=== PATIENT | female | born 1990 | race Asian ===

== ENCOUNTER 2022-06-23 06:25 | Inpatient (IN) | payer OTHER ==
[2022-06-23] MEDS: ELECTROLYTE-148 SOLN 1,000 ML IV SCH ×3 (08:00→18:40)
[2022-06-23 09:16] VITALS: BMI 27.8
[2022-06-23] MEDS ORDERED: OXYTOCIN 30 UNITS in 0.9% NS 30 UNIT/500 ML INFUS.BAG IVPB SCH (10:30)
[2022-06-23 10:52] LABS: BASO % 0.3 % (0-2.0); EOS % 0.5 % (0-4.5); HEMATOCRIT 38.2 % (32.4-45.2); HEMOGLOBIN 12.9 GM/dL (10.7-15.3); LYMPH % 17.6 % (8-40); MCH 32.8 pg (25.7-33.7); MCHC 33.7 g/dl (32.0-36.0); MEAN CELL VOLUME 97.2 fl (80-96); MEAN PLT VOLUME 8.7 fl (7.5-11.1); MONO % 5.5 % (3.8-10.2); NEUT % 76.1 % (42.8-82.8); PLATELET COUNT 205 10^3/uL (134-434); RBC 3.93 M/mm3 (3.60-5.2); RDW 13.2 % (11.6-15.6); WHITE BLOOD COUNT 8.9 K/mm3 (4.0-10.0)
[2022-06-23 11:01] LABS: INR 0.91 (0.83-1.09); PROTHROMBIN TIME (PATIENT) 10.4 SEC (9.7-13.0)
[2022-06-23] MEDS ORDERED: OXYTOCIN 30 UNITS in 0.9% NS 30 UNIT/500 ML INFUS.BAG IVPB ONE (11:02)
[2022-06-23 11:04] LABS: ACTIVATED PTT 26.2 SECONDS (25.2-36.5)
[2022-06-23 11:58] LABS: CALCIUM 8.5 mg/dL (8.5-10.1)
[2022-06-23 11:59] LABS: BLOOD UREA NITROGEN 5.4 mg/dL (7-18)
[2022-06-23 12:02] LABS: CREATININE 0.5 mg/dL (0.55-1.3)
[2022-06-23] MEDS ORDERED: PROMETHAZINE HCL 25 MG/1 ML VIAL IVPUSH ONE (13:15)
[2022-06-23] MEDS ORDERED: BUTORPHANOL TARTRATE 1 MG/ML VIAL IVPUSH ONE (13:15)
[2022-06-23] MEDS ORDERED: BUTORPHANOL TARTRATE 2 MG/ML VIAL ONE (13:31)
[2022-06-23] MEDS ORDERED: PROMETHAZINE HCL 25 MG/1 ML VIAL ONE (13:32)
[2022-06-23] MEDS ORDERED: NALOXONE HCL 0.4 MG/ML VIAL IVPUSH PRN (17:29)
[2022-06-23] MEDS ORDERED: FENTANYL/BUPIVACAINE/NS/PF - PCEA - 50 ML DISP.SYRIN EP ONE ×2 (17:29→22:09)
[2022-06-23] MEDS ORDERED: FENTANYL/BUPIVACAINE/NS/PF - PCEA - 50 ML DISP.SYRIN EP SCH (17:30)
[2022-06-23] MEDS ORDERED: BUPIVACAINE HCL/PF 0.25% (2.5MG/ML) 10 ML VIAL ONE (17:34)
[2022-06-23] MEDS ORDERED: FENTANYL CITRATE/PF 50 MCG/ML VIAL ONE (17:34)
[2022-06-23] MEDS ORDERED: OXYTOCIN 20 UNITS in 0.9% NS 20 UNIT/1,000 ML INFUS.BAG IV ONE (22:22)
[2022-06-23] MEDS ORDERED: LIDOCAINE HCL 1% PRESERVATIVE FREE - 30ML VIAL ONE (22:23)
[2022-06-23] MEDS ORDERED: ACETAMINOPHEN 325 MG TABLET (FP) PO PRN (23:19)
[2022-06-23] MEDS ORDERED: BISACODYL 10 MG SUPP.RECT RC PRN (23:19)
[2022-06-23] MEDS ORDERED: oxyCODONE HCL 5 MG TABLET PO PRN (23:19)
[2022-06-23] MEDS ORDERED: BENZOCAINE 20% 57 GM BOTTLE TP PRN (23:19)
[2022-06-23] MEDS ORDERED: METHYLERGONOVINE MALEATE 0.2 MG/1 ML AMP IM PRN (23:19)
[2022-06-23] MEDS ORDERED: BENZOCAINE 28 GM HEMORRHOIDAL OINTMENT TP PRN (23:19)
[2022-06-23] MEDS ORDERED: WITCH HAZEL 50% (TUCKS) 40 PAD/JAR PAD TP PRN (23:19)
[2022-06-23] MEDS ORDERED: OXYTOCIN 20 UNITS in 0.9% NS 20 UNIT/1,000 ML INFUS.BAG IV SCH (23:30)
[2022-06-24] MEDS: IBUPROFEN 600 MG TABLET (FP) PO PRN ×3 (02:05→18:05)
[2022-06-24 02:14] LABS: CORD BASE EXCESS -7.7 mmol/L (0-2); CORD PCO2 43.1 mmHg (30-78); CORD pH 7.262 (7.14-7.44)
[2022-06-24 04:27] VITALS: RESP 18
[2022-06-24 08:51] LABS: BASO % 0.3 % (0-2.0); EOS % 0.1 % (0-4.5); HEMATOCRIT 34.7 % (32.4-45.2); HEMOGLOBIN 11.7 GM/dL (10.7-15.3); LYMPH % 11.6 % (8-40); MCH 33.2 pg (25.7-33.7); MCHC 33.9 g/dl (32.0-36.0); MEAN CELL VOLUME 98.1 fl (80-96); MEAN PLT VOLUME 8.3 fl (7.5-11.1); MONO % 4.9 % (3.8-10.2); NEUT % 83.1 % (42.8-82.8); PLATELET COUNT 178 10^3/uL (134-434); RBC 3.54 M/mm3 (3.60-5.2); RDW 13.2 % (11.6-15.6); WHITE BLOOD COUNT 14.7 K/mm3 (4.0-10.0)
[2022-06-24] MEDS: PRENATAL VITAMINS W/ FOLIC ACID TABLET (FP) PO SCH (09:07)
[2022-06-24 11:29] LABS: POC NITRAZINE POS
[2022-06-24] MEDS ORDERED: SENNOSIDES/DOCUSATE COMBO (SENNA PLUS) TABLET (UD) PO PRN (22:00)
[2022-06-25] MEDS: IBUPROFEN 600 MG TABLET (FP) PO PRN ×2 (01:13→08:10)
[2022-06-25 08:48] VITALS: BP 106/53; PULSE 75; TEMP 98
[2022-06-25] MEDS: PRENATAL VITAMINS W/ FOLIC ACID TABLET (FP) PO SCH (09:52)
== END 2022-06-25 14:56 | disposition home or self-care (01) | DRG 560 ==
LOC: JDEL 06:25 → JLDR 07:10 → J3W 06-24 02:31
PROVIDERS: ADMIT Obstetrics & Gynecology; ATTEND Obstetrics & Gynecology
PROC: 10E0XZZ Delivery of Products of Conception, External Approach (ICD-10-PCS; principal; 2022-06-23)
PROC: 0KQM0ZZ Repair Perineum Muscle, Open Approach (ICD-10-PCS; 2022-06-23)
PROC: 0W8NXZZ Division of Female Perineum, External Approach (ICD-10-PCS; 2022-06-23)
DX: O70.1 Second degree perineal laceration during delivery (principal); Z3A.37 37 weeks gestation of pregnancy; Z37.0 Single live birth
CPT/HCPCS: 36415; 36600; 59025; 59409; 80048; 82803; 83986-QW; 85025; 85610; 85730; 86780; 86850; 86900; 86901; C9803-CS; U0003; U0005